=== PATIENT | male | born 1935 | race Hispanic/Latino ===

== ENCOUNTER → 2020-01-25 | Outpatient (CLI) | payer OTHER ==
[~2020-01-25] MED LIST: IOHEXOL-350 50ML VIAL IV ONE; IOHEXOL-350 75 ML VIAL IV ONE
== END | disposition home or self-care (01) ==
LOC: RAH 07:34
PROVIDERS: ATTEND Internal Medicine Cardiovascular Disease
DX: I71.4 Abdominal aortic aneurysm, without rupture (principal); N40.0 Benign prostatic hyperplasia without lower urinary tract symptoms; I74.09 Other arterial embolism and thrombosis of abdominal aorta; K40.90 Unilateral inguinal hernia, without obstruction or gangrene, not specified as recurrent; K40.20 Bilateral inguinal hernia, without obstruction or gangrene, not specified as recurrent; N28.1 Cyst of kidney, acquired; K44.9 Diaphragmatic hernia without obstruction or gangrene; J84.10 Pulmonary fibrosis, unspecified; M47.815 Spondylosis without myelopathy or radiculopathy, thoracolumbar region; I73.9 Peripheral vascular disease, unspecified
CPT/HCPCS: 75635; Q9967 ×2

== ENCOUNTER 2020-03-30 16:49 | Inpatient (IN) | payer OTHER ==
[~2020-03-30] VITALS: Ht 162.6 cm; Wt 75.4 kg
[2020-03-30 17:54] LABS: BASOPHILS % (AUTO) 0.6 % (0.0-5.0); HEMATOCRIT 44.2 % (42-54); LYMPHOCYTES % (AUTO) 13.8 % (21.0-51.0); MEAN CORPUSCULAR HEMOGLOBIN 30.5 pg (27.0-33.0); MEAN CORPUSCULAR HGB CONC 33.3 g/dL (32.0-36.0); MEAN CORPUSCULAR VOLUME 91.7 fL (79-99); MONOCYTES % (AUTO) 12.1 % (3.0-13.0); NEUTROPHILS % (AUTO) 71.1 % (40.0-77.0); PLATELET COUNT (AUTO) 236 K/uL (130-400); RED BLOOD CELL COUNT(AUTO) 4.82 MIL/uL (4.50-6.20); RED CELL DISTRIBUTION WIDTH 13.2 % (11.0-15.5); WHITE BLOOD COUNT (AUTO) 8.4 K/uL (4.8-10.8)
[2020-03-30 18:05] LABS: PROTHROMBIN TIME 10.9 SEC (9.6-11.6)
[2020-03-30 18:07] LABS: CREATININE 1.5 mg/dL (0.5-1.5); PARTIAL THROMBOPLASTIN TIME 24.7 SEC (26.3-35.5); POTASSIUM 4.4 mmol/L (3.5-5.1)
[2020-03-30 18:10] LABS: ALBUMIN 3.7 g/dL (3.5-5.0); BILIRUBIN,TOTAL 0.5 mg/dL (0.2-1.0); TOTAL PROTEIN, SERUM 6.7 g/dL (6.0-8.3)
[2020-03-30 18:27] LABS: B-TYPE NATRIURETIC PEPTIDE 19 pg/mL (0-100)
[2020-03-30] MEDS ORDERED: METOPROLOL TARTRATE 25 MG TAB ONE (18:45)
[2020-03-30] MEDS ORDERED: NITROGLYCERIN 0.4 MG SL TAB SL PRN (22:45)
[2020-03-30] MEDS ORDERED: DIPHENHYDRAMINE HCL 25 MG CAPSULE PO PRN (22:45)
[2020-03-30] MEDS ORDERED: LACTULOSE 20 GM/30 ML UDCUP PO PRN (22:45)
[2020-03-30] MEDS ORDERED: ACETAMINOPHEN 325 MG TAB PO PRN ×2 (22:45)
[2020-03-30] MEDS ORDERED: DiphenhydrAMINE HCL 50 MG/ML VIAL IV PRN (22:45)
[2020-03-30] MEDS ORDERED: ONDANSETRON 4MG INJ IV PRN (22:45)
[2020-03-30] MEDS ORDERED: MAG/ALUM/SIMETH 30 ML UDCUP PO PRN (22:45)
[2020-03-30] MEDS ORDERED: 0.9%NACL 10ML VIAL IVP PRN (23:00)
[2020-03-30] MEDS: ASPIRIN 81MG CHEW TAB PO SCH (23:03)
[2020-03-30] MEDS: CLOPIDOGREL 75MG TAB PO SCH (23:03)
[2020-03-31] VITALS: BP 138/76
[2020-03-31 04:00] VITALS: BP 133/67
[2020-03-31 05:20] LABS: BASOPHILS % (AUTO) 0.9 % (0.0-5.0); EOSINOPHILS % (AUTO) 3.2 % (0.0-8.0); HEMATOCRIT 41.3 % (42-54); LYMPHOCYTES % (AUTO) 20.7 % (21.0-51.0); MEAN CORPUSCULAR HEMOGLOBIN 31.3 pg (27.0-33.0); MEAN CORPUSCULAR HGB CONC 34.4 g/dL (32.0-36.0); NEUTROPHILS % (AUTO) 63.7 % (40.0-77.0); PLATELET COUNT (AUTO) 211 K/uL (130-400); RED BLOOD CELL COUNT(AUTO) 4.54 MIL/uL (4.50-6.20); RED CELL DISTRIBUTION WIDTH 13.2 % (11.0-15.5); WHITE BLOOD COUNT (AUTO) 6.6 K/uL (4.8-10.8)
[2020-03-31 05:33] LABS: INR 1.03 (0.85-1.15); PROTHROMBIN TIME 11.2 SEC (9.6-11.6)
[2020-03-31 05:34] LABS: PARTIAL THROMBOPLASTIN TIME 25.3 SEC (26.3-35.5)
[2020-03-31 05:39] LABS: ALBUMIN 3.3 g/dL (3.5-5.0); BILIRUBIN,TOTAL 0.7 mg/dL (0.2-1.0); CREATININE 1.2 mg/dL (0.5-1.5); TOTAL PROTEIN, SERUM 6.2 g/dL (6.0-8.3)
[2020-03-31 08:00] VITALS: BP 158/69
[2020-03-31 11:00] VITALS: BP 166/73
[2020-03-31] MEDS: ASPIRIN 81MG CHEW TAB PO SCH (11:14)
[2020-03-31] MEDS ORDERED: REGADENOSON 0.4 MG/5 ML PF SYG IVP SCH (11:15)
[2020-03-31] MEDS: CLOPIDOGREL 75MG TAB PO SCH (11:15)
[2020-03-31] MEDS: METOPROLOL TARTRATE 25 MG TAB PO SCH ×2 (11:15→20:45)
[2020-03-31] MEDS: FAMOTIDINE 20MG VIAL IV SCH ×2 (11:18→20:45)
[2020-03-31 16:00] VITALS: BP 137/69
[2020-03-31 20:23] VITALS: BP 118/64
[2020-04-01 00:10] VITALS: BP 143/76
[2020-04-01 04:04] LABS: BASOPHILS % (AUTO) 0.8 % (0.0-5.0); EOSINOPHILS % (AUTO) 2.6 % (0.0-8.0); HEMATOCRIT 42.7 % (42-54); LYMPHOCYTES % (AUTO) 16.7 % (21.0-51.0); MEAN CORPUSCULAR HEMOGLOBIN 30.9 pg (27.0-33.0); MONOCYTES % (AUTO) 11.2 % (3.0-13.0); NEUTROPHILS % (AUTO) 68.3 % (40.0-77.0); PLATELET COUNT (AUTO) 220 K/uL (130-400); RED BLOOD CELL COUNT(AUTO) 4.69 MIL/uL (4.50-6.20); RED CELL DISTRIBUTION WIDTH 13.1 % (11.0-15.5); WHITE BLOOD COUNT (AUTO) 7.6 K/uL (4.8-10.8)
[2020-04-01 04:17] VITALS: BP 169/72
[2020-04-01 04:22] LABS: ALBUMIN 3.4 g/dL (3.5-5.0); BILIRUBIN,TOTAL 0.6 mg/dL (0.2-1.0); CREATININE 1.1 mg/dL (0.5-1.5); POTASSIUM 4.6 mmol/L (3.5-5.1); TOTAL PROTEIN, SERUM 6.4 g/dL (6.0-8.3)
[2020-04-01 07:00] VITALS: BP 144/75
[2020-04-01] MEDS: FAMOTIDINE 20MG VIAL IV SCH ×2 (08:21→20:17)
[2020-04-01] MEDS: METOPROLOL TARTRATE 25 MG TAB PO SCH ×2 (08:21→20:17)
[2020-04-01] MEDS: CLOPIDOGREL 75MG TAB PO SCH (08:21)
[2020-04-01] MEDS: ASPIRIN 81MG CHEW TAB PO SCH (08:22)
[2020-04-01 11:30] VITALS: BP 159/68
[2020-04-01 16:00] VITALS: BP 156/85
[2020-04-01] MEDS ORDERED: CLOP75TA32 PO (18:25)
[2020-04-01] MEDS ORDERED: ATOR40TA69 PO (18:25)
[2020-04-01] MEDS ORDERED: ASPI-1005 PO (18:25)
[2020-04-01] MEDS ORDERED: CYAN100099 PO (18:25)
[2020-04-01] MEDS ORDERED: OMEP20CA12 PO (18:25)
[2020-04-01] MEDS ORDERED: LOSA50TA64 PO (18:25)
[2020-04-01] MEDS ORDERED: LORA10TA7 PO (18:25)
[2020-04-01 20:00] VITALS: BP 137/62
[2020-04-02 00:05] VITALS: BP 141/54
[2020-04-02 03:44] VITALS: BP 138/72
[2020-04-02 06:04] LABS: BASOPHILS % (AUTO) 0.8 % (0.0-5.0); EOSINOPHILS % (AUTO) 2.5 % (0.0-8.0); HEMATOCRIT 44.1 % (42-54); LYMPHOCYTES % (AUTO) 18.1 % (21.0-51.0); MEAN CORPUSCULAR HEMOGLOBIN 30.7 pg (27.0-33.0); MEAN CORPUSCULAR VOLUME 90.4 fL (79-99); MONOCYTES % (AUTO) 11.2 % (3.0-13.0); NEUTROPHILS % (AUTO) 66.9 % (40.0-77.0); PLATELET COUNT (AUTO) 217 K/uL (130-400); RED BLOOD CELL COUNT(AUTO) 4.88 MIL/uL (4.50-6.20); WHITE BLOOD COUNT (AUTO) 7.9 K/uL (4.8-10.8)
[2020-04-02 06:09] LABS: ALBUMIN 3.4 g/dL (3.5-5.0); BILIRUBIN,TOTAL 0.7 mg/dL (0.2-1.0); CREATININE 1.3 mg/dL (0.5-1.5); POTASSIUM 4.1 mmol/L (3.5-5.1); TOTAL PROTEIN, SERUM 6.5 g/dL (6.0-8.3)
[2020-04-02 07:00] VITALS: BP 151/84
[2020-04-02] MEDS: CLOPIDOGREL 75MG TAB PO SCH (08:22)
[2020-04-02] MEDS: ASPIRIN 81MG CHEW TAB PO SCH (08:22)
[2020-04-02] MEDS: METOPROLOL TARTRATE 25 MG TAB PO SCH ×2 (08:22→20:01)
[2020-04-02] MEDS: FAMOTIDINE 20MG VIAL IV SCH ×2 (08:23→20:00)
[2020-04-02] MEDS ORDERED: CARB15DR OP (08:39)
[2020-04-02] MEDS ORDERED: LATA7.5D OD (08:39)
[2020-04-02 11:30] VITALS: BP 158/77
[2020-04-02] MEDS ORDERED: ARTIFICAL TEARS SOL 15 ML OP SCH (14:45)
[2020-04-02 16:00] VITALS: BP 138/75
[2020-04-02] MEDS ORDERED: ATORVASTATIN 40 MG TABLET ONE (19:20)
[2020-04-02 19:35] LABS: ABG BASE EXCESS -1.4 mmol/L (-2.0-3.0); ABG HCO3 22.7 mmol/L (21.0-28.0); ABG OXYGEN SATURATION 94.6 % (95.0-99.0); ABG PCO2 37 mmHg (35-48)
[2020-04-02 19:37] VITALS: BP 153/76
[2020-04-02] MEDS: ATORVASTATIN 40 MG TABLET PO SCH (20:01)
[2020-04-02] MEDS: LATANOPROST 2.5 ML DROPS OD SCH (20:02)
[2020-04-03 03:51] VITALS: BP 135/50
[2020-04-03 07:00] VITALS: BP 150/76
[2020-04-03 07:45] LABS: BASOPHILS % (AUTO) 0.7 % (0.0-5.0); EOSINOPHILS % (AUTO) 1.5 % (0.0-8.0); HEMATOCRIT 44.2 % (42-54); LYMPHOCYTES % (AUTO) 21.3 % (21.0-51.0); MEAN CORPUSCULAR HEMOGLOBIN 30.6 pg (27.0-33.0); MEAN CORPUSCULAR HGB CONC 34.2 g/dL (32.0-36.0); MEAN CORPUSCULAR VOLUME 89.5 fL (79-99); MONOCYTES % (AUTO) 10.5 % (3.0-13.0); NEUTROPHILS % (AUTO) 65.7 % (40.0-77.0); PLATELET COUNT (AUTO) 215 K/uL (130-400); RED BLOOD CELL COUNT(AUTO) 4.94 MIL/uL (4.50-6.20); WHITE BLOOD COUNT (AUTO) 7.3 K/uL (4.8-10.8)
[2020-04-03 07:52] LABS: CREATININE 1.3 mg/dL (0.5-1.5); POTASSIUM 4.1 mmol/L (3.5-5.1)
[2020-04-03] MEDS: CYANOCOBALAMIN (VITAMIN B-12) 1,000 MCG TABLET PO SCH (08:12)
[2020-04-03] MEDS: METOPROLOL TARTRATE 25 MG TAB PO SCH ×2 (08:12→21:00)
[2020-04-03] MEDS: ASPIRIN 81MG CHEW TAB PO SCH (08:12)
[2020-04-03] MEDS: LORATADINE 10 MG TABLET PO SCH (08:12)
[2020-04-03] MEDS: LOSARTAN 50 MG TABLET PO SCH (08:12)
[2020-04-03] MEDS: CLOPIDOGREL 75MG TAB PO SCH (08:14)
[2020-04-03] MEDS: FAMOTIDINE 20MG VIAL IV SCH (08:14)
[2020-04-03] MEDS ORDERED: CLOPIDOGREL 75MG TAB PO SCH (09:00)
[2020-04-03] MEDS ORDERED: ASPIRIN 81MG CHEW TAB PO SCH (09:00)
[2020-04-03 11:30] VITALS: BP 151/68
[2020-04-03 16:00] VITALS: BP 137/80
[2020-04-03 20:00] VITALS: BP 119/67
[2020-04-04] VITALS (7 sets, daily range): BP systolic 112–157; BP diastolic 58–72
[2020-04-04] MEDS: FAMOTIDINE 20MG VIAL IV SCH ×3 (00:13→23:03)
[2020-04-04] MEDS: ATORVASTATIN 40 MG TABLET PO SCH ×2 (00:13→23:03)
[2020-04-04] MEDS: LATANOPROST 2.5 ML DROPS OD SCH ×2 (00:14→23:03)
[2020-04-04 06:21] LABS: BASOPHILS % (AUTO) 0.8 % (0.0-5.0); EOSINOPHILS % (AUTO) 1.8 % (0.0-8.0); HEMATOCRIT 44.5 % (42-54); LYMPHOCYTES % (AUTO) 20.4 % (21.0-51.0); MEAN CORPUSCULAR HEMOGLOBIN 30.7 pg (27.0-33.0); MEAN CORPUSCULAR HGB CONC 34.2 g/dL (32.0-36.0); MEAN CORPUSCULAR VOLUME 89.9 fL (79-99); NEUTROPHILS % (AUTO) 65.5 % (40.0-77.0); PLATELET COUNT (AUTO) 218 K/uL (130-400); RED BLOOD CELL COUNT(AUTO) 4.95 MIL/uL (4.50-6.20); RED CELL DISTRIBUTION WIDTH 13.2 % (11.0-15.5)
[2020-04-04 06:39] LABS: CREATININE 1.2 mg/dL (0.5-1.5); POTASSIUM 3.7 mmol/L (3.5-5.1)
[2020-04-04] MEDS: LOSARTAN 50 MG TABLET PO SCH (10:29)
[2020-04-04] MEDS: LORATADINE 10 MG TABLET PO SCH (10:29)
[2020-04-04] MEDS: CYANOCOBALAMIN (VITAMIN B-12) 1,000 MCG TABLET PO SCH (10:29)
[2020-04-04] MEDS: METOPROLOL TARTRATE 25 MG TAB PO SCH ×2 (10:30→23:03)
[2020-04-04] MEDS: CLOPIDOGREL 75MG TAB PO SCH (10:30)
[2020-04-04] MEDS: ASPIRIN 81MG CHEW TAB PO SCH (10:30)
[2020-04-04] MEDS ORDERED: LIDOCAINE HCL-MPF 1% 2ML VIAL IV PRN (12:30)
[2020-04-04] MEDS ORDERED: POTASSIUM CHLORIDE 20MEQ/100ML 100 ML IV PRN (12:30)
[2020-04-04] MEDS ORDERED: POTASSIUM CHLORIDE 10% ELIXIR 20 MEQ/15 ML UDCUP PO PRN (12:30)
[2020-04-04] MEDS: KCL 20 MEQ ERTAB PO PRN ×2 (12:40→16:36)
[2020-04-05] VITALS (10 sets, daily range): BP systolic 111–144; BP diastolic 45–89
[2020-04-05 03:48] LABS: BASOPHILS % (AUTO) 0.6 % (0.0-5.0); EOSINOPHILS % (AUTO) 1.5 % (0.0-8.0); HEMATOCRIT 44.6 % (42-54); LYMPHOCYTES % (AUTO) 19.1 % (21.0-51.0); MEAN CORPUSCULAR HEMOGLOBIN 30.6 pg (27.0-33.0); MEAN CORPUSCULAR HGB CONC 34.1 g/dL (32.0-36.0); MEAN CORPUSCULAR VOLUME 89.7 fL (79-99); NEUTROPHILS % (AUTO) 68.5 % (40.0-77.0); PLATELET COUNT (AUTO) 220 K/uL (130-400); RED BLOOD CELL COUNT(AUTO) 4.97 MIL/uL (4.50-6.20); RED CELL DISTRIBUTION WIDTH 13.1 % (11.0-15.5); WHITE BLOOD COUNT (AUTO) 8.6 K/uL (4.8-10.8)
[2020-04-05 03:57] LABS: CREATININE 1.2 mg/dL (0.5-1.5); POTASSIUM 4.6 mmol/L (3.5-5.1)
[2020-04-05 04:01] LABS: INR 1.05 (0.85-1.15); PROTHROMBIN TIME 11.4 SEC (9.6-11.6)
[2020-04-05 04:02] LABS: PARTIAL THROMBOPLASTIN TIME 25.1 SEC (26.3-35.5)
[2020-04-05] MEDS ORDERED: SODIUM BICARB 50MEQ 50ML VIAL 50 ML ONE (07:13)
[2020-04-05] MEDS ORDERED: IOHEXOL 350 MG/ML 100ML INFUS..BTL IV ONE ×2 (07:14→07:22)
[2020-04-05] MEDS ORDERED: LIDOCAINE HCL 400MG/20ML VIAL ONE (07:14)
[2020-04-05] MEDS ORDERED: NITROGLYCERIN 2 MG VIAL IV ONE (07:14)
[2020-04-05] MEDS ORDERED: FENTANYL CITRATE PF 50 MCG/1 ML 2ML VIAL ONE (07:23)
[2020-04-05] MEDS ORDERED: MIDAZOLAM HCL 1 MG/ML 2ML VIAL ONE (07:23)
[2020-04-05] MEDS ORDERED: BIVALIRUDIN 250 MG/VIAL IV ONE (07:58)
[2020-04-05] MEDS ORDERED: CLOPIDOGREL 300MG TAB ONE (08:10)
[2020-04-05] MEDS ORDERED: ASPIRIN 325MG EC TAB PO ONE (08:10)
[2020-04-05] MEDS: ASPIRIN 81MG CHEW TAB PO SCH (09:00)
[2020-04-05] MEDS: CLOPIDOGREL 75MG TAB PO SCH (09:00)
[2020-04-05] MEDS ORDERED: LABETALOL 20MG SYG IV ONE (09:27)
[2020-04-05] MEDS ORDERED: 0.9%NACL 1000ML 1,000 ML IV SCH (10:00)
[2020-04-05] MEDS: LOSARTAN 50 MG TABLET PO SCH (12:08)
[2020-04-05] MEDS: FAMOTIDINE 20MG VIAL IV SCH ×2 (12:08→23:32)
[2020-04-05] MEDS: METOPROLOL TARTRATE 25 MG TAB PO SCH ×2 (12:08→23:32)
[2020-04-05] MEDS: LORATADINE 10 MG TABLET PO SCH (12:08)
[2020-04-05] MEDS: CYANOCOBALAMIN (VITAMIN B-12) 1,000 MCG TABLET PO SCH (12:09)
[2020-04-05] MEDS: ATORVASTATIN 40 MG TABLET PO SCH (23:32)
[2020-04-05] MEDS: LATANOPROST 2.5 ML DROPS OD SCH (23:38)
[2020-04-06] VITALS: BP 145/71
[2020-04-06 04:29] VITALS: BP 154/83
[2020-04-06 06:29] LABS: MEAN CORPUSCULAR HEMOGLOBIN 30.5 pg (27.0-33.0); MEAN CORPUSCULAR HGB CONC 33.8 g/dL (32.0-36.0); MEAN CORPUSCULAR VOLUME 90.3 fL (79-99); RED BLOOD CELL COUNT(AUTO) 4.65 MIL/uL (4.50-6.20); RED CELL DISTRIBUTION WIDTH 13.1 % (11.0-15.5); WHITE BLOOD COUNT (AUTO) 8.7 K/uL (4.8-10.8)
[2020-04-06 06:42] LABS: ALBUMIN 3.2 g/dL (3.5-5.0); BILIRUBIN,TOTAL 0.9 mg/dL (0.2-1.0); CREATININE 1.1 mg/dL (0.5-1.5); MAGNESIUM 1.7 mg/dL (1.80-2.40); POTASSIUM 4.3 mmol/L (3.5-5.1)
[2020-04-06 07:00] VITALS: BP 154/71
[2020-04-06] MEDS: CLOPIDOGREL 75MG TAB PO SCH (08:51)
[2020-04-06] MEDS: CYANOCOBALAMIN (VITAMIN B-12) 1,000 MCG TABLET PO SCH (08:51)
[2020-04-06] MEDS: LOSARTAN 50 MG TABLET PO SCH (08:52)
[2020-04-06] MEDS: ASPIRIN 81MG CHEW TAB PO SCH (08:52)
[2020-04-06] MEDS: LORATADINE 10 MG TABLET PO SCH (08:52)
[2020-04-06] MEDS: METOPROLOL TARTRATE 25 MG TAB PO SCH (08:52)
[2020-04-06] MEDS ORDERED: CLOPIDOGREL 75MG TAB PO SCH (09:00)
[2020-04-06] MEDS ORDERED: ASPIRIN 81MG CHEW TAB PO SCH (09:00)
[2020-04-06] MEDS: FAMOTIDINE 20MG VIAL IV SCH (09:26)
[2020-04-06 11:00] VITALS: BP 151/77
== END 2020-04-06 14:22 | disposition home or self-care (01) | DRG 247 ==
LOC: EDH 16:49 → EDHIP 16:50 → 4DH 19:35
PROVIDERS: ADMIT Family Medicine; ATTEND Family Medicine
PROC: 027136Z Dilation of Coronary Artery, Two Arteries with Three Drug-eluting Intraluminal Devices, Percutaneous Approach (ICD-10-PCS; principal; 2020-04-05)
PROC: 02703DZ Dilation of Coronary Artery, One Artery with Intraluminal Device, Percutaneous Approach (ICD-10-PCS; 2020-04-05)
PROC: 4A023N7 Measurement of Cardiac Sampling and Pressure, Left Heart, Percutaneous Approach (ICD-10-PCS; 2020-04-05)
PROC: B2111ZZ Fluoroscopy of Multiple Coronary Arteries using Low Osmolar Contrast (ICD-10-PCS; 2020-04-05)
PROC: B2151ZZ Fluoroscopy of Left Heart using Low Osmolar Contrast (ICD-10-PCS; 2020-04-05)
DX: T82.855A Stenosis of coronary artery stent, initial encounter (principal); I24.9 Acute ischemic heart disease, unspecified; I13.0 Hypertensive heart and chronic kidney disease with heart failure and stage 1 through stage 4 chronic kidney disease, or unspecified chronic kidney disease; I25.110 Atherosclerotic heart disease of native coronary artery with unstable angina pectoris; I73.9 Peripheral vascular disease, unspecified; E78.5 Hyperlipidemia, unspecified; N18.30 Chronic kidney disease, stage 3 unspecified; E78.2 Mixed hyperlipidemia; K59.00 Constipation, unspecified; N28.1 Cyst of kidney, acquired; M48.10 Ankylosing hyperostosis [Forestier], site unspecified; M45.9 Ankylosing spondylitis of unspecified sites in spine; I50.9 Heart failure, unspecified; G47.00 Insomnia, unspecified; I77.1 Stricture of artery; Z20.822 Contact with and (suspected) exposure to COVID-19; Y84.0 Cardiac catheterization as the cause of abnormal reaction of the patient, or of later complication, without mention of misadventure at the time of the procedure; Y92.89 Other specified places as the place of occurrence of the external cause; Z87.891 Personal history of nicotine dependence; Z79.899 Other long term (current) drug therapy
CPT/HCPCS: 36415; 36600; 71045; 71250; 78452; 80048; 80053; 80061; 82550; 82803; 83735; 83880; 84484; 85025; 85027; 85610; 85730; 86850; 86900; 86901; 87426; 93005; 93017; 93306; 93356; 93458; 93970; 94760; 96374; A9500; C1760; C1769; C1887; C1894; C9600; G0378; J0583; J1644; J2250; J2785; J3010; J3490; Q9967; U0003

== ENCOUNTER → 2021-02-02 | Outpatient (CLI) | payer OTHER ==
[~2021-02-02] MED LIST changes: +ASPI-1005 PO; +ATOR40TA69 PO; +CARB15DR OP; +CLOP75TA32 PO; +CYAN100099 PO; -IOHEXOL-350 50ML VIAL IV ONE; -IOHEXOL-350 75 ML VIAL IV ONE; +LATA7.5D OD; +LORA10TA7 PO; +LOSA50TA64 PO; +OMEP20CA12 PO
== END | disposition home or self-care (01) ==
LOC: RAH 10:37
PROVIDERS: ATTEND Internal Medicine Gastroenterology
DX: R13.10 Dysphagia, unspecified (principal); R63.39 Other feeding difficulties
CPT/HCPCS: 74230; 92611